=== PATIENT | female | born 1985 | race American Indian/Alaskan Native ===

== ENCOUNTER 2020-12-11 09:59 | Outpatient (CLI) | payer MEDICAID ==
--- NOTE | 2020-12-11 12:04 | Ultrasound Report ---
BILATERAL DIAGNOSTIC MAMMOGRAM WITH LIMITED LEFT ULTRASOUND. INDICATION: Left upper outer breast pain. COMPARISON: None. This is a baseline exam. FINDINGS: CC and MLO projections of the bilateral breasts were obtained. There is scattered fibroglan dular breast density. Additional views of a left upper outer focal asymmetry shows no persistent susp icious finding. No mammographic correlate to explain reported left upper outer breast pain. CAD was u tilized. Targeted ultrasound in the left upper outer breast in the region of reported pain shows no suspicious solid or cystic lesion. No evidence of malignancy. IMPRESSION: No evidence of malignancy. No mammographic or sonographic correlate to explain reported left upper ou ter breast pain for which clinical management is recommended. A routine screening mammogram at age 40 would be appropriate, unless imaging is clinically indicated sooner. BI-RADS Category 1: Negative. Recommend routine screening mammography in one year. A "normal" or negative report should not discourage follow up or biopsy of a clinically significant f inding. A written summary of these findings will be mailed to the patient. FURTHER INFORMATION: According to the [employer], yearly mammograms are recommend ed starting at age 40 and continuing as long as a woman is in good health. Breast MRI is recommended for women with an approximately 20-25% or greater lifetime risk of breast cancer, including women wi th a strong family history of breast or ovarian cancer and women who have been treated for Hodgkin's disease. Signer Name: Kyler Motta MD Signed: 12/11/2020 11:59 AM Workstation Name: [id number]
== END 2020-12-11 10:00 | disposition home or self-care (01) ==
LOC: SPVWC 09:59
PROVIDERS: ATTEND Advanced Practice Midwife
DX: N64.4 Mastodynia (principal); R92.8 Other abnormal and inconclusive findings on diagnostic imaging of breast
CPT/HCPCS: 77066